=== PATIENT | male | born 1990 | race Caucasian/White ===

== ENCOUNTER → 2018-11-08 16:53 | Outpatient (CLI) | payer OTHER, SELFPAY ==
--- NOTE | 2018-11-08 16:58 | DI.RAD.S_ITS ---
PROCEDURE: XR CERVICAL SPINE 4V OR 5V INDICATIONS: Cervical spondylosis TECHNIQUE: 5 views of the cervical spine acquired. COMPARISON: None. FINDINGS: Bones: No fractures or dislocations to the T1 level. Oblique images demonstrate no bony foraminal stenoses. No significant degenerative change. Soft tissues: No prevertebral soft tissue swelling. IMPRESSION: Unremarkable cervical spine films. Dictated by: Ricardo Bosch M.D. on 11/08/2018 at 17:51 Approved by: Ricardo Bosch M.D. on 11/08/2018 at 17:54
--- NOTE | 2018-11-08 16:58 | DI.MRI.S_ITS ---
PROCEDURE: MR CERVICAL SPINE WO CON INDICATIONS: Neck pain TECHNIQUE: Noncontrast sagittal T1 spin echo and T2 fast spin echo, sagittal STIR, foraminal oblique sagittal T2 fast spin echo, and axial gradient echo or T2 fast spin echo through the cervical spine. COMPARISON: None. FINDINGS: Image quality: Excellent. Alignment and Curvature: There is normal bony alignment. Bone Marrow: Marrow demonstrates normal overall signal. Spinal Cord: Visualized spinal cord has normal size and signal. No cerebellar tonsillar herniation. Paraspinous Soft Tissues: No paravertebral masses. Prevertebral soft tissues are normal in thickness. C2-C3: Normal appearance. C3-C4: Normal appearance. C4-C5: Normal appearance. C5-C6: Normal appearance. C6-C7: Normal appearance. C7-T1: Normal appearance. IMPRESSION: Unremarkable cervical spine MRI. No evidence of canal stenosis or foraminal stenosis. Dictated by: Ricardo Bosch M.D. on 11/10/2018 at 9:37 Approved by: Ricardo Bosch M.D. on 11/10/2018 at 9:38
== END ==
PROVIDERS: Visit Provider Physical Medicine & Rehabilitation
DX: M54.2 Cervicalgia (principal); M47.812 Spondylosis without myelopathy or radiculopathy, cervical region; M75.41 Impingement syndrome of right shoulder
CPT/HCPCS: 72050; 72141

== ENCOUNTER → 2021-07-20 17:42 | Outpatient (CLI) | payer BC, SELFPAY ==
[2021-07-20 18:23] LABS: COVID19 -Nasal RAPID Negative (Negative)
== END ==
PROVIDERS: Visit Provider Nurse Practitioner Family
DX: Z20.822 Contact with and (suspected) exposure to COVID-19 (principal)
CPT/HCPCS: 87635